=== PATIENT | male | born 1965 | race Caucasian/White ===

== ENCOUNTER 2021-11-11 09:20 | Day surgery (SDC) | payer OTHER ==
[~2021-11-11] VITALS: Ht 177.8 cm; Wt 90.9 kg
--- NOTE | 2021-11-11 12:11 | NUR ---
11/11/21 1211 Nikki Kimble 1205 PATIENT ARRIVES TO PACU UNRESPONSIVE TO PAIN, ORAL AIRWAY IN PLACE. RESP EVEN AND UNLABORED, ROOM AIR SATS >90%. 1210 PATIENT CONTINUES TO BE UNRESPONSIVE TO PAIN. ORAL AIRWAY IN PLACE. RESP EVEN AND UNLABORED, MASK ON AT 6 LITERS.
--- NOTE | 2021-11-11 12:35 | NUR ---
PT ARRIVED TO WITH AT BEDSIDE, VSS. PT DENIES PAIN AND NAUSEA. PT SIPPING COFFEE AND WATER. CRYO CUFF PLACED AND EDUCATION GIVEN. PT REPORTS HE IS UNABLE TO NOT LIFT FOR THE SIX WEEKS PER MD ORDER. EDUCATION GIVEN AND PT REPORTS HE WILL TALK TO MD. CALL LIGHT WITHIN REACH AND VSS.
--- NOTE | 2021-11-11 13:02 | OR ---
[facility] [address], [place] [address] Signed DATE OF OPERATION: 11/11/2021 SURGEON: Marli Orellana MD PREOPERATIVE DIAGNOSIS: Partial rotator cuff tear, right shoulder. POSTOPERATIVE DIAGNOSIS: Partial rotator cuff tear, right shoulder. PROCEDURE PERFORMED: Right shoulder arthroscopy with debridement of partial tear. SPORTS BOOK SERVER: CAMILLE Morales. Dalia was present and critical for all portions procedure. ANESTHESIA: General. BLOOD LOSS: Minimal. BRIEF HISTORY: Erinn is a 56-year-old gentleman with pain in his shoulder. He was nonresponsive to nonoperative treatment. Risks and benefits of the operative treatment discussed with him, he elected to proceed. Once consent was obtained, he was taken to the operating room after adequate anesthesia, he was placed in a beach chair position. All downside pressure points well padded. Shoulder was prepped and draped in a standard sterile fashion. The shoulder was injected with 15 mL of 0.25% Marcaine with epinephrine as was the subacromial space. Standard posterior portal was established and the scope was introduced into the shoulder. ARTHROSCOPIC FINDINGS: There was [id number] erythema anteriorly along the biceps. There was noted to be a partial tear of the subscapularis and the anterior half of the end of the supraspinatus. The glenohumeral surfaces were intact. The biceps was normally located in its groove and there was no bicipital tendinitis. The biceps anchor and the labrum were intact. The glenohumeral surfaces were intact. The remainder of the undersurface of the rotator cuff was intact. The scope was withdrawn placed in the subacromial Electronically Signed By: MARLI ORELLANA MD 11/11/21 1302 PATIENT NAME: ERINN MENDIETA OPERATIVE REPORT DATE OF : 65 REPORT #: [id number] PHYSICIAN: MARLI ORELLANA MD PCP: NO PRIMARY CARE PHYSICIAN REPORT IS CONFIDENTIAL AND NOT TO BE RELEASED WITHOUT AUTHORIZATION [facility] [address], [place] [address] Signed bursa. There was absolutely no bursitis. The bursa was wide open and no bursectomy was needed. The needle been placed to locate the tear showed excellent superior surface of the rotator cuff. DESCRIPTION OF PROCEDURE: Diagnostic arthroscopy was undertaken as noted above. Standard anterior portal was made to use localization using a spinal needle. The two partial tears of the rotator cuff were then debrided using the shaver. Excellent bleeding was obtained. Approximately 30% of the rotator cuff tendons were noted to be torn, the other 70% were in good shape. Once we had debrided these back to good bleeding surfaces, the scope was withdrawn placed in the subacromial space, again the bursa was intact with no evidence of any bursitis or scarring. The superior surface of the rotator cuff was intact, the acromion was type 1. No evidence of cortical humeral impingement was noted either. The scopes were then withdrawn and the portal was closed with 3-0 nylon and the shoulder was injected with 60 mg Toradol at the end of the case. He tolerated the procedure well. All sponge, needle, and instrument counts were correct. The wounds were dressed with Allevyn and OpSite. Marli Orellana MD BA/MODL /[id number] Copies: ~ Electronically Signed By: MARLI ORELLANA MD 11/11/21 1302 PATIENT NAME: ERINN MENDIETA OPERATIVE REPORT DATE OF : 65 REPORT #: [id number] PHYSICIAN: MARLI ORELLANA MD PCP: NO PRIMARY CARE PHYSICIAN REPORT IS CONFIDENTIAL AND NOT TO BE RELEASED WITHOUT AUTHORIZATION
--- NOTE | 2021-11-11 14:05 | NUR ---
1322 PT UP TO BATHROOM AND VOID NOTED. PT WANTING TO GET DRESSED AND REPORTS READINESS FOR DISCHARGE. 1350 PT DRESSED WITH AND VSS. PT REPORTS "I CAME HERE TO GET THIS FIXED." NO BEING ABLE TO LIFT FOR SIX WEEK "THATS NO GOING TO WORK FOR ME." PT PASSING IN ROOM AND BEHAVIOR ESCALATING. 1357 MD CALLED AND UPDATED ON PT. MD REPORTS HE WILL CALL PT TOMORROW AND DISCUSS DISCHARGE INSTRUCTIONS AND MD WILL SEND RX TO PHARMACY. 1405 DC INSTRUCTIONS GIVEN AND PT CONTINUES TO REPORT HOW HE IS UNABLE TO FOLLOW THE DISCHARGE INSTRUCTIONS AND HE NEEDS TO LEAVE. PT ABULATORY FROM DEPARTMENT WITH .
== END 2021-11-11 14:05 | disposition home or self-care (01) ==
LOC: DS 09:20
PROVIDERS: ATTEND Specialist
PROC: 0RBJ4ZZ Excision of Right Shoulder Joint, Percutaneous Endoscopic Approach (ICD-10-PCS; principal; 2021-11-11 12:30)
DX: M75.111 Incomplete rotator cuff tear or rupture of right shoulder, not specified as traumatic (principal); G89.18 Other acute postprocedural pain
CPT/HCPCS: 64415; 76942; J0330; J0690; J1100; J1885; J2001; J2250; J2405; J2704; J2795; J3010; J7121